=== PATIENT | female | born 1950 | race Caucasian/White ===

== ENCOUNTER → 2023-05-29 16:31 | Outpatient (REF) | payer MEDICARE, SELFPAY | LOC: WDC 16:31 | PROVIDERS: ATTENDING PHYSICIAN Family Medicine | DX: Z12.31 Encounter for screening mammogram for malignant neoplasm of breast (principal) | CPT/HCPCS: 77063; 77067 ==

== ENCOUNTER → 2024-06-12 13:19 | Outpatient (REF) | payer MEDICARE, SELFPAY | LOC: WDC 13:19 | PROVIDERS: ATTENDING PHYSICIAN Family Medicine | DX: Z12.31 Encounter for screening mammogram for malignant neoplasm of breast (principal); M85.80 Other specified disorders of bone density and structure, unspecified site; M89.9 Disorder of bone, unspecified; Z78.0 Asymptomatic menopausal state | CPT/HCPCS: 77063; 77067; 77080 ==

== ENCOUNTER → 2024-09-29 15:14 | Outpatient (REF) | payer MEDICARE, SELFPAY | LOC: RAD 15:14 | PROVIDERS: ATTENDING PHYSICIAN Nurse Practitioner Family; FAMILY PHYSICIAN Family Medicine | DX: M54.41 Lumbago with sciatica, right side (principal) | CPT/HCPCS: 72110 ==

== ENCOUNTER 2024-12-01 13:59 | Outpatient (RCR) | payer MEDICARE, SELFPAY | END 2024-12-01 23:59 | disposition home or self-care (01) | LOC: RPT 13:59 | PROVIDERS: ATTENDING PHYSICIAN Nurse Practitioner Family | DX: M54.16 Radiculopathy, lumbar region (principal); Z73.6 Limitation of activities due to disability; R26.89 Other abnormalities of gait and mobility; M79.604 Pain in right leg | CPT/HCPCS: 97110; 97112; 97140; 97163; 97530 ==

== ENCOUNTER → 2024-12-21 09:04 | Outpatient (REF) | payer MEDICARE, SELFPAY | LOC: PAVMRI 09:04 | PROVIDERS: ATTENDING PHYSICIAN Family Medicine | DX: M54.41 Lumbago with sciatica, right side (principal); M54.16 Radiculopathy, lumbar region | CPT/HCPCS: 72148 ==

== ENCOUNTER 2024-12-23 07:39 | Outpatient (RCR) | payer MEDICARE, SELFPAY | END 2024-12-23 23:59 | disposition home or self-care (01) | LOC: RPT 07:39 | PROVIDERS: ATTENDING PHYSICIAN Nurse Practitioner Family | DX: M54.16 Radiculopathy, lumbar region (principal); Z73.6 Limitation of activities due to disability; R26.89 Other abnormalities of gait and mobility; M79.604 Pain in right leg | CPT/HCPCS: 97010; 97110; 97140 ==